=== PATIENT | female | born 1955 | race Caucasian/White ===

== ENCOUNTER 2017-08-09 14:22 | Outpatient (CLI) | payer MEDICARE, MEDICAID ==
[~2017-08-09 14:22] MED LIST: Iopamidol 370 76% 100 ML VIAL ONE
== END 2017-08-09 14:23 | disposition home or self-care (01) ==
LOC: BICCT 14:22
PROVIDERS: ATTEND Neurological Surgery
DX: R10.2 Pelvic and perineal pain (principal); R07.9 Chest pain, unspecified; M48.56XA Collapsed vertebra, not elsewhere classified, lumbar region, initial encounter for fracture
CPT/HCPCS: 71260; 74177

== ENCOUNTER 2017-08-16 09:09 | Outpatient (CLI) | payer MEDICARE, MEDICAID | END 2017-08-16 09:10 | disposition home or self-care (01) | LOC: BICMAMMO 09:09 | PROVIDERS: ATTEND Neurological Surgery | DX: Z13.820 Encounter for screening for osteoporosis (principal); M48.56XA Collapsed vertebra, not elsewhere classified, lumbar region, initial encounter for fracture; M85.89 Other specified disorders of bone density and structure, multiple sites | CPT/HCPCS: 77080 ==

== ENCOUNTER 2017-09-08 10:42 | Outpatient (CLI) | payer MEDICARE, MEDICAID ==
--- NOTE | 2017-09-08 12:44 | CT ---
CT LUMBAR SPINE WITHOUT CONTRAST: Date: 09/08/17 HISTORY: Patient fell in June. L1 compression fracture. Pain radiating to both legs. Back pain. COMPARISON: None. TECHNIQUE: Lumbar spine CT is performed without contrast. Coronal reformatted images are submitted for interpret ation. FINDINGS: There is paraspinal hematoma and stranding at the L1 level, compatible with a severe compression frac ture. There is retropulsion. There is moderate to severe loss of vertebral body height. There is 3.0 mm of retrolisthesis of L1 upon L2. Remaining lumbar spine vertebral body heights are maintained. The re is no fracture. There is vacuum disc phenomenon at L5-S1. Visualized solid organs and alimentary canal are unremarkable. Atherosclerosis of a nonaneurysmal aorta is noted. Limited evaluation of the contents of the central spinal canal and neural foramina due to technique. T11-T12: No high grade central canal stenosis or high grade foraminal narrowing. T12-L1: No high grade central canal stenosis or high grade foraminal narrowing. L1 vertebral body: Mild central canal stenosis secondary to retropulsion of the L1 vertebral body. L1-L2: No significant posterior disc abnormality. No significant central canal stenosis. Neural foramina are patent. L2-L3: No high grade central canal stenosis. Right neural foramen is patent. Mild left foraminal narrowing. L3-L4: No significant posterior disc abnormality. No significant central canal stenosis. Mild posterior [place] ent hypertrophy. Right neural foramen is patent. Mild left foraminal narrowing. L4-L5: Generalized disc bulge with disc material encroach upon both subarticular zones. There is some mass e ffect without obscuration of the traversing L5 nerve roots, right greater than left. No significant s tenosis of the thecal sac. Mild bilateral neural foraminal narrowing. L5-S1: No significant central canal stenosis. Neural foramina are mildly narrowed bilaterally. IMPRESSION: 1. Moderate to severe compression fracture at L1 with retropulsion. 2. Varying degrees of central canal stenosis and foraminal narrowing as detailed above. POS: [facility]
== END 2017-09-08 10:43 | disposition home or self-care (01) ==
LOC: CT 10:42
PROVIDERS: ATTEND Specialist
DX: S32.019A Unspecified fracture of first lumbar vertebra, initial encounter for closed fracture (principal); M48.061 Spinal stenosis, lumbar region without neurogenic claudication; M99.53 Intervertebral disc stenosis of neural canal of lumbar region
CPT/HCPCS: 72131

== ENCOUNTER 2018-01-16 15:15 | Outpatient (CLI) | payer MEDICARE, MEDICAID ==
--- NOTE | 2018-01-16 18:24 | MRI ---
MRI OF THE LUMBAR SPINE WITHOUT CONTRAST: 01/16/18 HISTORY: Compression fracture of L1. COMPARISON: None. CORRELATION: CT lumbar spine 09/08/17. TECHNIQUE: MRI lumbar spine is performed without intravenous administration. Multisequential, multiplanar imagin g is performed. FINDINGS: Stable severe loss of vertebral body height with vertebra plana and associated retropulsion of L1. ST IR hyperintensity likely due to mechanical stress secondary to a remote compression fracture. Mild ed hunter involving the adjacent disc spaces is also felt to be reactive. L2 through L5 demonstrates preser vation of vertebral body height. No fracture. No significant STIR hyperintensity to suggest vertebral body edema or ligamentous injury. Retroperitoneal structures are unremarkable. Symmetric signal intensity of the psoas muscles. Symmetr ic signal intensity of the kidneys. The conus medullaris terminates at the inferior end plate of T12. T12-L1: No high grade central canal stenosis or high grade foraminal narrowing. L1 vertebral body: Mild central canal stenosis due to retropulsion. L1-2: No significant posterior disc abnormality. There is mild to moderate bilateral foraminal narrow ing. L2-3: Mild loss of disc space height. Left and right paracentral disc bulges are present. No signific ant central canal stenosis. Mild narrowing to both subarticular zones secondary to disc material. Dis c material abuts both traversing L3 nerve roots. Mild right and left foraminal narrowing. L3-4: Adequate disc hydration. No significant posterior disc abnormality. No significant central griffin l stenosis. Right neural foramen is patent. Mild left foraminal narrowing. L4-5: Mild loss of disc space height and disc desiccation. Nevertheless, no significant central canal stenosis. There is narrowing of the right subarticular zone secondary to epidural fat. There is post erior displacement of the traversing right L5 nerve root. Mild to moderate bilateral neural foraminal narrowing. L5-S1: Moderate loss of disc space height. No significant central canal stenosis. Moderate right and mild left foraminal narrowing. IMPRESSION: 1. No high grade central canal stenosis or high grade foraminal narrowing. There is some promine nt epidural fat along the right subarticular zone at L4-5 and L5-S1 of uncertain significance. Varyi ng degrees of foraminal stenosis as above. 2. Stable compression fracture at L1. POS: [facility]
== END 2018-01-16 15:16 | disposition home or self-care (01) ==
LOC: SCSMRI 15:15
PROVIDERS: ATTEND Specialist
DX: M48.56XA Collapsed vertebra, not elsewhere classified, lumbar region, initial encounter for fracture (principal); M99.83 Other biomechanical lesions of lumbar region
CPT/HCPCS: 72148

== ENCOUNTER 2018-11-08 08:58 | Outpatient (CLI) | payer MEDICARE, MEDICAID | END 2018-11-08 08:59 | disposition home or self-care (01) | PROVIDERS: ATTEND Otolaryngology Otolaryngic Allergy | DX: R13.13 Dysphagia, pharyngeal phase (principal); R63.3 Feeding difficulties | CPT/HCPCS: 74230 ==

== ENCOUNTER 2019-01-29 08:51 | Outpatient (CLI) | payer MEDICARE, MEDICAID ==
--- NOTE | 2019-01-29 10:21 | ULT ---
US Hepatic Doppler: 01/29/2019 12:00 AM CLINICAL HISTORY: Chronic hepatitis. STUDY: Right upper quadrant ultrasound of liver. TECHNIQUE: Multiplanar grayscale and color Doppler images were obtained in a ultrasound of the right upper quadrant of the abdomen. Spectral analysis of the Doppler waveforms of the hepatic and splenic vessels were performed. COMPARISON: None. FINDINGS: Liver: Size: Small. Echogenicity: Increased Contour: Smooth. Mass: None. Bile ducts: No intrahepatic or extrahepatic biliary dilatation. Common bile duct measures 6 mm. Gallbladder: Normal. Pancreas: Head, body, and tail appear normal. Hepatic veins: Normal waveforms. Normal directional flow. Portable veins: Normal waveforms. Normal directional flow. Hepatic arteries: Normal waveforms. Normal directional flow. Splenic vein: Normal waveforms. Normal directional flow. Splenic artery: Normal waveforms. Normal directional flow. The spleen is normal in echogenicity without focal lesions and measures 12.3cm in length. IMPRESSION: Cirrhotic liver without focal lesions.
== END 2019-01-29 08:52 | disposition home or self-care (01) ==
LOC: ULT 08:51
PROVIDERS: ATTEND Physician Assistant Medical
DX: R13.10 Dysphagia, unspecified (principal); Z86.19 Personal history of other infectious and parasitic diseases; K74.60 Unspecified cirrhosis of liver
CPT/HCPCS: 76705

== ENCOUNTER 2019-08-19 07:53 | Outpatient (CLI) | payer MEDICARE, MEDICAID ==
--- NOTE | 2019-08-19 08:42 | BD ---
DEXA BONE MINERAL DENSITY STUDY: HISTORY: Osteoporosis screening. Age-related osteoporosis with current pathology fractures, site unspecified. COMPARISON: None. FINDINGS: Lumbar Spine: BMD (g/cm2) L1 0.952 T-Score: -0.3 1.2 L2 1.075 T-Score: 0.4 2.2 L3 0.947 T-Score: -1.2 0.6 L4 0.830 T-Score: -2.1 -0.2 L1-L4 0.939 T-Score: -1.0 0.7 Femoral Neck: 0.676 T-Score: -1.6 -0.1 Total Femur: 0.859 T-Score: -0.7 0.5 WHO Classification: Osteopenia. Impression: Osteopenia with elevated fracture risk. POS: [facility]
--- NOTE | 2019-08-19 08:52 | MMO ---
Bilateral MAMMO Bilat Screen [facility]. CLINICAL HISTORY: Patient is 64 years old and is seen for screening. The patient has no family history of breast cancer. The patient has a history of other cancer. VIEWS: The views performed were: bilateral craniocaudal with tomosynthesis and bilateral mediolateral oblique with tomosynthesis. FILMS COMPARED: The present examination has been compared to prior imaging studies performed at [facility] on 09/02/2008 and 09/09/2009, and at [facility] on 08/07/2007. This study has been interpreted with the assistance of computer-aided detection. MAMMOGRAM FINDINGS: There are scattered fibroglandular densities. Benign calcifications are noted bilaterally. There are no suspicious masses, suspicious calcifications, or new areas of architectural distortion. IMPRESSION: THERE IS NO MAMMOGRAPHIC EVIDENCE OF MALIGNANCY. A ROUTINE FOLLOW-UP MAMMOGRAM IN 1 YEAR IS RECOMMENDED. THE RESULTS OF THIS EXAM WERE SENT TO THE PATIENT. ACR BI-RADS Category 2 - Benign finding MAMMOGRAPHY NOTE: 1. A negative mammogram report should not delay a biopsy if a dominant of clinically suspicious mass is present. 2. Approximately 10% to 15% of breast cancers are not detected by mammography. 3. Adenosis and dense breasts may obscure an underlying neoplasm. Reported by: ANAHY MCDONALD MD Electonically Signed: [id number]
== END 2019-08-19 07:54 | disposition home or self-care (01) ==
LOC: BICMAMMO 07:53
PROVIDERS: ATTEND Physician Assistant
DX: Z12.31 Encounter for screening mammogram for malignant neoplasm of breast (principal); M80.00XG Age-related osteoporosis with current pathological fracture, unspecified site, subsequent encounter for fracture with delayed healing; Z85.89 Personal history of malignant neoplasm of other organs and systems; M85.88 Other specified disorders of bone density and structure, other site
CPT/HCPCS: 77063; 77067; 77080

== ENCOUNTER 2019-11-20 10:13 | Outpatient (CLI) | payer MEDICARE, MEDICAID ==
--- NOTE | 2019-11-20 12:15 | CT ---
CT CHEST WITHOUT CONTRAST; Date: 11/20/2019 INDICATION: Left chest pain. Left-sided rib/chest wall pain. FINDINGS: The lung sharpe are well aerated and are clear. There is no evidence of infiltrate or effusion. There is mild interstitial thickening and mild hyperexpansion consistent with chronic lung parenchymal casey nge. Mediastinum is unremarkable with nonspecific lymph nodes. Review of the ribs show evidence of an old, healed fracture involving the anterolateral left 7th rib. No acute rib fracture identified. Review of the vertebral bodies show a severe compression deformity involving the L1 vertebra. There i s mild retropulsion of this vertebra involving the posterior superior cortex with compression of the thecal sac and mild impingement on the conus. The thoracic vertebra maintain height and alignment. IMPRESSION: 1. No acute lung process. No acute rib fracture. 2. Severe compression deformity of the L1 vertebra. This is age-indeterminate, but may be chronic gi kylee presence of anterior osteophytes. There is mild retropulsion at this level which compresses the t hecal sac and appears to abut the conus. POS: [facility]
== END 2019-11-20 10:14 | disposition home or self-care (01) ==
LOC: BICCT 10:13
PROVIDERS: ATTEND Physician Assistant
DX: R07.81 Pleurodynia (principal); M43.8X6 Other specified deforming dorsopathies, lumbar region
CPT/HCPCS: 71250

== ENCOUNTER 2019-11-28 09:14 | Outpatient (CLI) | payer MEDICARE, MEDICAID ==
--- NOTE | 2019-11-28 13:26 | ULT ---
EXAM: HEPATIC ULTRASOUND WITH DUPLEX AND COLOR AND SPECTRAL DOPPLER IMAGIN11/28/19 HISTORY: Hepatitis C. COMPARISON: 01/29/19. FINDINGS: Heterogeneous liver echogenicity evidence for nonspecific hepatic parenchymal process. Little change from prior study. Visualized gallbladder is unremarkable. Common bile duct 0.7 cm. Antegrade venous v ascular flow including hepatic and portal veins. IMPRESSION: Heterogeneous liver echogenicity evidence for nonspecific hepatic parenchymal process. Antegrade port al and hepatic veins. Little change from prior study. No new process. POS: [facility]
== END 2019-11-28 09:15 | disposition home or self-care (01) ==
LOC: BICULT 09:14
PROVIDERS: ATTEND Internal Medicine Gastroenterology
DX: R13.10 Dysphagia, unspecified (principal); K76.89 Other specified diseases of liver; Z86.19 Personal history of other infectious and parasitic diseases; Z86.010 Personal history of colon polyps
CPT/HCPCS: 76705

== ENCOUNTER 2020-06-16 09:00 | Outpatient (CLI) | payer MEDICARE, MEDICAID ==
--- NOTE | 2020-06-16 09:51 | CT ---
CT of [facility] without [id number]-xtxy screening chest CT: 06/16/2020 COMPARISON:11/20/2019 HISTORY:Screening examination, personal history of nicotine dependence TECHNIQUE: Serial axial CT imaging at2 mm intervals from thethoracic inlet through the upper abdomen without contrast. Coronal and sagittal reformatted imaging obtained. Findings:The lack of contrast media limits assessment of the viscera, vascular structures, and for ly mphadenopathy. Limited assessment of the upper abdomen demonstrates no acute findings. Scattered atherosclerotic maranda cification of the imaged abdominal aorta noted. No pleural, pericardial, or mediastinal fluid. There is atherosclerotic calcification of the aortic arch and the coronary arterial vasculature. Limited assessment of the chest for lymphadenopathy appears unremarkable. No pneumothorax is seen. Left upper lobe: No suspicious mass/nodule. Left lower lobe: No suspicious mass/nodule. Right upper lobe: Mild subpleural cystic change anteriorly. No suspicious mass/nodule. Right middle lobe: No suspicious mass/nodule. Right lower lobe: No suspicious mass/nodule. There is mild bronchiectasis within the bilateral lower lobes. Review of the osseous structures demonstrates lower cervical spine anterior discectomy and fusion mitali dware. No lytic or blastic bone lesion. Impression:Lung RADS category 1-negative. Recommend continued screening with low-dose chest CT in one year.
== END 2020-06-16 09:01 | disposition home or self-care (01) ==
LOC: BICCT 09:00
PROVIDERS: ATTEND Physician Assistant
DX: Z12.2 Encounter for screening for malignant neoplasm of respiratory organs (principal); Z87.891 Personal history of nicotine dependence
CPT/HCPCS: G0297

== ENCOUNTER 2020-09-22 08:21 | Outpatient (CLI) | payer MEDICARE, MEDICAID ==
[2020-09-22 16:21] LABS: SARS-CoV-2 PCR by NAA Not Detected (NotDetected)
== END 2020-09-22 08:22 | disposition home or self-care (01) ==
LOC: LABBT 08:21
PROVIDERS: ATTEND Otolaryngology Plastic Surgery within the Head & Neck
DX: Z01.812 Encounter for preprocedural laboratory examination (principal); R13.10 Dysphagia, unspecified; Z20.822 Contact with and (suspected) exposure to COVID-19
CPT/HCPCS: U0003; U0005; 87635

== ENCOUNTER 2020-09-24 10:39 | Outpatient (CLI) | payer MEDICARE, MEDICAID | END 2020-09-24 10:40 | disposition home or self-care (01) | PROVIDERS: ATTEND Otolaryngology Plastic Surgery within the Head & Neck | DX: I69.891 Dysphagia following other cerebrovascular disease (principal); R13.10 Dysphagia, unspecified | CPT/HCPCS: 74230 ==

== ENCOUNTER 2020-11-03 14:54 | Outpatient (CLI) | payer MEDICARE, MEDICAID | END 2020-11-03 14:55 | disposition home or self-care (01) | LOC: BICMRI 14:54 | PROVIDERS: ATTEND Physician Assistant | DX: M47.22 Other spondylosis with radiculopathy, cervical region (principal); Z98.890 Other specified postprocedural states | CPT/HCPCS: 72141 ==

== ENCOUNTER 2020-11-27 10:31 | Outpatient (CLI) | payer MEDICARE, MEDICAID ==
[2020-11-27 11:41] LABS: PTT 24.2 sec (22.0-33.0); Prothrombin Time 10.7 sec (9.5-12.1)
[2020-11-27 11:47] LABS: Anion Gap 16 mmol/L (10-20); BUN (Urea Nitrogen) 12 mg/dL (9.8-20.1); Calc. Creatinine Clearance 0 mL/min (70-130); Calcium 9.5 mg/dL (7.8-10.44); Carbon Dioxide 23 mmol/L (23-31); Chloride 108 mmol/L (98-107); Glucose 111 mg/dL (80-115); Potassium 4.2 mmol/L (3.5-5.1); Sodium 143 mmol/L (136-145)
[2020-11-27 11:49] LABS: Mean Corpuscular Volume 96.8 fl (81.6-98.3); Mean Platelet Volume 10.1 fl (7.4-10.4); Platelet Count 180 10x3/uL (150-450); RBC Distribution Width 12.6 % (11.5-14.5); Red Blood Cell (RBC) Count 4.69 10x6/uL (3.90-5.03); White Blood Cell (WBC) Count 6.7 10x3/uL (3.5-10.5)
== END 2020-11-27 10:32 | disposition home or self-care (01) ==
LOC: LABBT 10:31
PROVIDERS: ATTEND Urology
DX: Z01.818 Encounter for other preprocedural examination (principal); N20.1 Calculus of ureter; M48.062 Spinal stenosis, lumbar region with neurogenic claudication; I73.9 Peripheral vascular disease, unspecified; B19.20 Unspecified viral hepatitis C without hepatic coma; R10.9 Unspecified abdominal pain; K83.8 Other specified diseases of biliary tract
CPT/HCPCS: 80048; 81001; 85027; 85610; 85730; 87086; 93005; 93010

== ENCOUNTER 2020-12-02 08:55 | Day surgery (SDC) | payer MEDICARE, MEDICAID ==
[2020-12-01 09:17] VITALS: BMI 35.0
[2020-12-02] MEDS ORDERED: Levofloxacin 500 mg/D5W 100 ml Premix Bag ONE (10:03)
[2020-12-02] MEDS ORDERED: Morphine 4 MG/ML VIAL ONE (11:55)
[2020-12-02] MEDS ORDERED: Fentanyl 100 MCG/2 ML VIAL ONE ×3 (13:46→15:04)
[2020-12-02] MEDS ORDERED: Dexamethasone 20 MG/5 ML VIAL ONE (14:02)
[2020-12-02] MEDS ORDERED: PROPOFOL 200 MG/20 ML VIAL ONE (14:02)
[2020-12-02] MEDS ORDERED: Lidocaine 1% PF 5 ML VIAL ONE (14:02)
[2020-12-02] MEDS ORDERED: Rocuronium Bromide 10 MG/ML (10ML VIAL) ONE (14:02)
[2020-12-02] MEDS ORDERED: Ondansetron PF 4 MG/2 ML Vial ONE (14:02)
[2020-12-02] MEDS ORDERED: Iothalamate Meglumine 60% 50 ML VIAL FS ONE (14:21)
[2020-12-02] MEDS ORDERED: Oxybutynin 5 MG TAB ONE (15:08)
[2020-12-02] MEDS ORDERED: Phenazopyridine HCl 100 MG TAB ONE (15:08)
== END 2020-12-02 15:48 | disposition home or self-care (01) ==
LOC: SDC 08:55
PROVIDERS: ATTEND Urology
PROC: 0T778DZ Dilation of Left Ureter with Intraluminal Device, Via Natural or Artificial Opening Endoscopic (ICD-10-PCS; principal; 2020-12-02)
DX: N13.2 Hydronephrosis with renal and ureteral calculous obstruction (principal); N35.92 Unspecified urethral stricture, female; M79.7 Fibromyalgia; M81.0 Age-related osteoporosis without current pathological fracture; M19.90 Unspecified osteoarthritis, unspecified site; G43.909 Migraine, unspecified, not intractable, without status migrainosus; B19.20 Unspecified viral hepatitis C without hepatic coma; M54.12 Radiculopathy, cervical region; M85.80 Other specified disorders of bone density and structure, unspecified site; G89.29 Other chronic pain; M54.9 Dorsalgia, unspecified; E78.5 Hyperlipidemia, unspecified; K21.9 Gastro-esophageal reflux disease without esophagitis; M48.062 Spinal stenosis, lumbar region with neurogenic claudication; I73.9 Peripheral vascular disease, unspecified; Z87.891 Personal history of nicotine dependence; Z79.82 Long term (current) use of aspirin; Z79.899 Other long term (current) drug therapy; Z88.1 Allergy status to other antibiotic agents; Z88.5 Allergy status to narcotic agent; Z88.8 Allergy status to other drugs, medicaments and biological substances; Z91.048 Other nonmedicinal substance allergy status
CPT/HCPCS: 52332; 74018; 74420; Q9961; C2617; J1100; J1956; J2270; J2405; J2704; J3010

== ENCOUNTER 2020-12-07 10:48 | Emergency (ER) | payer MEDICARE, MEDICAID ==
[2020-12-07 11:49] LABS: #Lymphocytes 2.2 thou/uL (1.20-3.40); #Monocytes 0.6 thou/uL (0.11-0.59); #Neutrophils 6.3 thou/uL (1.40-6.50); %Basophils 0.4 % (0.0-1.0); %Eosinophils 0.5 % (0.0-10.0); %Lymphocytes 23.7 % (21.0-51.0); %Monocytes 6.7 % (0.0-10.0); %Neutrophils 68.7 % (42.0-75.0); Hemoglobin 14.9 g/dL (12.0-16.0); Mean Corpuscular HGB CONC 34.2 g/dL (32.0-36.0); Mean Corpuscular Hemoglobin 33.7 pg (27.0-31.0); Mean Corpuscular Volume 98.5 fL (78.0-98.0); Mean Platelet Volume 7.6 fL (7.4-10.4); Platelet Count 200 thou/uL (130-400); Red Blood Cell (RBC) Count 4.43 mill/uL (4.20-5.40); White Blood Cell (WBC) Count 9.2 thou/uL (4.8-10.8)
[2020-12-07 12:16] LABS: Bacteria/HPF None Seen HPF (None Seen); Bilirubin Negative (Negative); Blood, Urine 3+ (Negative); Clarity Turbid (Clear); Glucose, Urine (Dipstick) 30 mg/dL (Negative); Ketone, Urine Negative (Negative); Leukocyte 250 Leu/uL (Negative); Nitrite Negative (Negative); Protein, Urine (Dipstick) 300 mg/dL (Neg-Trace); RBC/HPF Greater than 50 HPF (0-3); Specific Gravity, Urine 1.038 (1.002-1.036); Squamous Epithelial None Seen HPF (0-3); Urobilinogen Normal mg/dL (Less than 2); WBC/HPF 0-3 HPF (0-3); pH, Urine 6.5 (5.0-9.0)
[2020-12-07 12:17] LABS: ALT (SGPT) 25 U/L (8-55); AST (SGOT) 24 U/L (5-34); Albumin 4.3 g/dL (3.4-4.8); Alkaline Phosphatase 93 U/L (40-110); Anion Gap 15 mmol/L (10-20); BUN (Urea Nitrogen) 13 mg/dL (9.8-20.1); Bilirubin, Total 0.6 mg/dL (0.2-1.2); Calc. Creatinine Clearance 0 mL/min (70-130); Calcium 9.5 mg/dL (7.8-10.44); Carbon Dioxide 29 mmol/L (23-31); Chloride 101 mmol/L (98-107); Globulin 3.1 g/dL (2.4-3.5); Glucose 138 mg/dL (80-115); Potassium 3.5 mmol/L (3.5-5.1); Protein, Total 7.4 g/dL (5.8-8.1); Sodium 141 mmol/L (136-145)
[2020-12-07] MEDS ORDERED: Ondansetron PF 4 MG/2 ML Vial ONE (13:22)
[2020-12-07] MEDS ORDERED: Ketorolac Tromethamine 30 MG/ML VIAL ONE (13:22)
== END 2020-12-07 14:40 | disposition home or self-care (01) ==
LOC: ERS 10:48
DX: R31.9 Hematuria, unspecified (principal); M62.838 Other muscle spasm; R11.2 Nausea with vomiting, unspecified; E78.5 Hyperlipidemia, unspecified; E78.00 Pure hypercholesterolemia, unspecified; G43.909 Migraine, unspecified, not intractable, without status migrainosus; K21.9 Gastro-esophageal reflux disease without esophagitis; Z86.718 Personal history of other venous thrombosis and embolism; Z87.891 Personal history of nicotine dependence
CPT/HCPCS: 36415; 80053; 81003; 81015; 85025; 96374; 96375; J1885; J2405

== ENCOUNTER 2020-12-17 09:42 | Outpatient (CLI) | payer MEDICARE, MEDICAID ==
[~2020-12-17 09:42] MED LIST changes: -Iopamidol 370 76% 100 ML VIAL ONE; +Magnevist 469MG/ML 20 ML VIAL ONE
== END 2020-12-17 09:43 | disposition home or self-care (01) ==
LOC: BICMRI 09:42
PROVIDERS: ATTEND Internal Medicine Gastroenterology
DX: N13.30 Unspecified hydronephrosis (principal); K74.60 Unspecified cirrhosis of liver; I85.10 Secondary esophageal varices without bleeding; R93.3 Abnormal findings on diagnostic imaging of other parts of digestive tract
CPT/HCPCS: 74183

== ENCOUNTER 2020-12-17 09:43 | Outpatient (CLI) | payer MEDICARE, MEDICAID | END 2020-12-17 09:44 | disposition home or self-care (01) | LOC: BICMAMMO 09:43 | PROVIDERS: ATTEND Physician Assistant | DX: Z12.31 Encounter for screening mammogram for malignant neoplasm of breast (principal); Z85.89 Personal history of malignant neoplasm of other organs and systems | CPT/HCPCS: 77063; 77067 ==

== ENCOUNTER 2021-06-17 09:29 | Outpatient (CLI) | payer MEDICARE, MEDICAID | END 2021-06-17 09:30 | disposition home or self-care (01) | LOC: SCSMRI 09:29 | PROVIDERS: ATTEND Internal Medicine Gastroenterology | DX: C22.0 Liver cell carcinoma (principal); K74.60 Unspecified cirrhosis of liver; I65.29 Occlusion and stenosis of unspecified carotid artery; N63.10 Unspecified lump in the right breast, unspecified quadrant; N28.1 Cyst of kidney, acquired; Z98.890 Other specified postprocedural states | CPT/HCPCS: 74183; 82565 ==

== ENCOUNTER 2021-08-11 08:13 | Outpatient (CLI) | payer MEDICARE, MEDICAID | END 2021-08-11 08:14 | disposition home or self-care (01) | LOC: BICULT 08:13 | PROVIDERS: ATTEND Urology | DX: R10.9 Unspecified abdominal pain (principal); G89.29 Other chronic pain; Z87.442 Personal history of urinary calculi | CPT/HCPCS: 76770 ==

== ENCOUNTER 2021-08-13 11:11 | Outpatient (CLI) | payer MEDICARE, MEDICAID ==
[2021-08-13] MEDS ORDERED: Iopamidol 370 76% 100 ML VIAL ONE (11:26)
[2021-08-13 12:13] LABS: Estimated GFR-MDRD - POC Greater than 90
== END 2021-08-13 11:12 | disposition home or self-care (01) ==
LOC: CT 11:11
PROVIDERS: ATTEND Urology
DX: N32.89 Other specified disorders of bladder (principal); R16.0 Hepatomegaly, not elsewhere classified; Z87.442 Personal history of urinary calculi
CPT/HCPCS: 36415; 74178; 80048; 81001; 87086; Q9967

== ENCOUNTER 2021-09-17 10:52 | Outpatient (CLI) | payer MEDICARE, MEDICAID ==
[2021-09-17] MEDS ORDERED: Iopamidol-370 76% 500 ML 1 ML ONE (12:34)
== END 2021-09-17 10:53 | disposition home or self-care (01) ==
LOC: BICCT 10:52
PROVIDERS: ATTEND Thoracic Surgery (Cardiothoracic Vascular Surgery)
DX: I65.23 Occlusion and stenosis of bilateral carotid arteries (principal); I73.9 Peripheral vascular disease, unspecified
CPT/HCPCS: 70498; 82565; Q9967

== ENCOUNTER 2022-03-25 11:53 | Outpatient (CLI) | payer MEDICARE, MEDICAID | END 2022-03-25 11:54 | disposition home or self-care (01) | LOC: SCSMRI 11:53 | PROVIDERS: ATTEND Neurological Surgery | DX: M51.16 Intervertebral disc disorders with radiculopathy, lumbar region (principal); M47.26 Other spondylosis with radiculopathy, lumbar region; M48.061 Spinal stenosis, lumbar region without neurogenic claudication; M84.48XA Pathological fracture, other site, initial encounter for fracture | CPT/HCPCS: 72158 ==

== ENCOUNTER 2022-09-26 08:17 | Outpatient (CLI) | payer OTHER, MEDICAID | END 2022-09-26 08:18 | disposition home or self-care (01) | LOC: SCSMRI 08:17 | PROVIDERS: ATTEND Internal Medicine Hematology & Oncology | DX: C22.0 Liver cell carcinoma (principal); K74.69 Other cirrhosis of liver; R93.5 Abnormal findings on diagnostic imaging of other abdominal regions, including retroperitoneum; R16.0 Hepatomegaly, not elsewhere classified | CPT/HCPCS: 74183 ==

== ENCOUNTER 2023-04-07 08:08 | Outpatient (CLI) | payer OTHER, MEDICAID | END 2023-04-07 08:09 | disposition home or self-care (01) | LOC: SCSMRI 08:08 | PROVIDERS: ATTEND Internal Medicine Hematology & Oncology | DX: C22.0 Liver cell carcinoma (principal); K76.89 Other specified diseases of liver | CPT/HCPCS: 74183 ==

== ENCOUNTER 2023-08-02 12:55 | Outpatient (CLI) | payer OTHER, MEDICAID | END 2023-08-02 12:56 | disposition home or self-care (01) | LOC: MRI 12:55 | PROVIDERS: ATTEND Internal Medicine Hematology & Oncology | DX: C22.8 Malignant neoplasm of liver, primary, unspecified as to type (principal); Z98.890 Other specified postprocedural states | CPT/HCPCS: 74183 ==

== ENCOUNTER 2023-11-17 06:24 | Day surgery (SDC) | payer OTHER, MEDICAID ==
[2023-11-16 14:43] VITALS: BMI 29.4
[2023-11-17] MEDS ORDERED: fentaNYL 50 mcg/mL 1 mL Vial ONE (07:45)
[2023-11-17] MEDS ORDERED: PROPOFOL 20 ML ONE ×2 (07:51→07:52)
[2023-11-17] MEDS ORDERED: HYDROcodone/Acetaminophen 5/325 mg Tablet ONE (10:25)
== END 2023-11-17 10:40 | disposition home or self-care (01) ==
LOC: SDC 06:24
PROVIDERS: ATTEND Internal Medicine Gastroenterology
PROC: 0DB68ZX Excision of Stomach, Via Natural or Artificial Opening Endoscopic, Diagnostic (ICD-10-PCS; principal; 2023-11-17)
DX: K29.50 Unspecified chronic gastritis without bleeding (principal); K25.9 Gastric ulcer, unspecified as acute or chronic, without hemorrhage or perforation; K76.6 Portal hypertension; K31.89 Other diseases of stomach and duodenum; K21.9 Gastro-esophageal reflux disease without esophagitis; K92.1 Melena; D64.9 Anemia, unspecified; F32.A Depression, unspecified; F41.9 Anxiety disorder, unspecified; Z87.891 Personal history of nicotine dependence; Z90.710 Acquired absence of both cervix and uterus; Z90.89 Acquired absence of other organs; Z91.048 Other nonmedicinal substance allergy status; Z88.1 Allergy status to other antibiotic agents; Z88.5 Allergy status to narcotic agent; Z79.899 Other long term (current) drug therapy
CPT/HCPCS: 88305; 88342; J2704; J3010